=== PATIENT | female | born 1980 | race Caucasian/White ===

== ENCOUNTER 2017-03-19 01:38 | Emergency (ER) | payer SELFPAY ==
[~2017-03-19] VITALS: Ht 162.6 cm; Wt 72.6 kg
--- NOTE | 2017-03-19 01:40 | NUR ---
TO BED 7 A 36 YO FEMALE [place] AND [employer] AND WITH C/O "GOT INTO AN ARGUMENT WITH SPOUSE AND RUNNING AROUND ACTING CRAZY," PATIENT DENIES ACCUSASTIONS, DENIES SI/HI. PATIENT WITH HX OF ANXIETY AND DEPRESSION. PER PATIENT SHE TOOK ATIVAN 1MG "THIS MORNING." AAOX3. VSS. NO SOB. BREATHING EVEN AND UNLABORED. INITIATED COMFORT AND SAFETY MEASURES. AWAITING FOR ER MD GREEN.
--- NOTE | 2017-03-19 02:04 | NUR ---
Dr Terrazas at bedside.
[2017-03-19] MEDS ORDERED: TDAP [DIPH/PERTUSSIS/TET] 0.5 ML VIAL IM ONE ×2 (05:40→06:00)
--- NOTE | 2017-03-19 06:28 | NUR ---
Placed dressing on abrasions on the left elbow. Patient discharged to home in stable condition. Written and verbal after care instructions given. Patient verbalizes understanding of instruction. Patient is ambulatory with steady gait, no further complalints.
[2017-03-19 06:30] VITALS: BP 128/70
== END 2017-03-19 06:31 | disposition home or self-care (01) ==
LOC: ER 01:41
DX: S20.112A Abrasion of breast, left breast, initial encounter (principal); S50.312A Abrasion of left elbow, initial encounter; F41.9 Anxiety disorder, unspecified; F32.9 Major depressive disorder, single episode, unspecified; W01.198A Fall on same level from slipping, tripping and stumbling with subsequent striking against other object, initial encounter; Y93.89 Activity, other specified; Y92.89 Other specified places as the place of occurrence of the external cause; Y99.9 Unspecified external cause status
CPT/HCPCS: 90715; A4606; Z7610